=== PATIENT | male | born 1935 | race Caucasian/White ===

== ENCOUNTER 2016-12-20 11:33 | Emergency (ER) | payer OTHER ==
[~2016-12-20] VITALS: Ht 172.7 cm; Wt 65.8 kg
[~2016-12-20 11:33] MED LIST: ACID REDUCER 1150 MG PO; ADVAIR 250/501 DISK IH; ASPIR 8181 M1 PO; ASPIR-LOW81 MG PO; ASPIRIN81 M2 PO; ATHENOL325 MG PO; AZITHROMYCIN250 MG PO; AZITHROMYCIN500 M1 PO; CEFDINIR300 MG PO; CELECOXIB100 MG PO; CEPHALEXIN500 M1 PO; CEPHALEXIN500 MG PO; CHILD ASPIRIN81 M1 PO; CLEOCIN300 MG PO; COUMADIN,JANTOVE5 MG PO; COUMADIN3 MG PO; COUMADIN4 MG PO; COUMADIN5 MG PO; COUMADIN6 MG PO; ELIQUIS5 MG PO; ENDOCET 5-3251 EACH PO; FEOSOL325 MG PO; FEROSUL325 MG PO; FERROUS SULFAT325 MG PO; FUROSEMIDE40 MG PO; HYDROCODON-ACE1 EAC7 PO; IBUPROFEN400 MG PO; JANTOVEN4 MG PO; K-DUR20 MEQ PO; KEFLEX500 MG PO; KETOCONAZOLE TP; KETOCONAZOLE120 ML TP; KLOR-CON M2020 MEQ PO; KLOR-CON-EF 2525 MEQ PO; LASIX20 MG PO; LASIX40 MG PO; LISINOPRIL10 MG PO; LISINOPRIL5 MG PO; LOVENOX100 MG/1 M SC; LOVENOX40 MG/0.4 SC; METHYLPREDNISOLO4 M1 PO; METHYLPREDNISOLO4 MG PO; MOTRIN400 MG PO; MOTRIN600 MG PO; Maalox, Mylanta PO; Milk Of Magnesia,MOM PO; NEXIUM20 MG PO; NEXIUM40 MG PO; NIVEA192 GM TP; NORCO 7.5/321 TABLET PO; PERCOCET; PERCOCET 5/31 TABLET PO; POTASSIUM CHLO20 ME1 PO; PROVENTIL,2.5 MG/3 M IH; Protonix PO; RANITIDINE HCL150 M1 PO; SANTYL30 GM TP; SENOKOT S,PE1 TABLET PO; TAMIFLU30 MG PO; THERAGRAN1 TABLET PO; TRAMADOL HCL50 MG PO; TYLENOL COLD H1 EAC5 PO; ULTRAM50 MG PO; VICODIN,LORT1 TABLET PO; VITAMIN D31000 UNI2 PO; VITAMIN D31000 UNIT PO; WARFARIN SODIUM3 MG PO; WARFARIN SODIUM4 MG PO; WARFARIN SODIUM5 MG PO; ZITHROMAX Z-PA250 MG PO; [UNRECOGNIZED DRUG - REMARK]
[2016-12-20 13:39] VITALS: BP 135/82
== END 2016-12-20 13:51 | disposition home or self-care (01) ==
LOC: EME 11:33
DX: I87.8 Other specified disorders of veins (principal); I10 Essential (primary) hypertension; I73.9 Peripheral vascular disease, unspecified; Z91.81 History of falling; E11.9 Type 2 diabetes mellitus without complications; J45.909 Unspecified asthma, uncomplicated; Z86.718 Personal history of other venous thrombosis and embolism; Z79.01 Long term (current) use of anticoagulants; Z85.828 Personal history of other malignant neoplasm of skin
CPT/HCPCS: 73564; 99281; 99284

== ENCOUNTER 2017-01-09 20:51 | Emergency (ER) | payer OTHER ==
[2017-01-09 23:35] VITALS: BP 111/64
== END 2017-01-09 23:44 | disposition home or self-care (01) ==
LOC: EME 20:51 → EXP 20:51
DX: S80.12XA Contusion of left lower leg, initial encounter (principal); V00.832A Motorized mobility scooter colliding with stationary object, initial encounter; Z86.718 Personal history of other venous thrombosis and embolism; Z79.01 Long term (current) use of anticoagulants
CPT/HCPCS: 73590; 99281; 99283

== ENCOUNTER 2017-03-10 19:12 | Emergency (ER) | payer OTHER ==
[~2017-03-10] VITALS: Ht 172.7 cm; Wt 89.1 kg
[2017-03-10 20:49] LABS: HEMATOCRIT 27.9 % (38.0-50.0); MCH 31.5 PG (29.0-34.0); MCV 95.5 FL (86-99); PLATELET COUNT 127 K/uL (156-360); RBC DIS.WIDTH-CV 13.2 % (11.8-14.6); RBC DIS.WIDTH-SD 46.9 % (39-53); RED BLOOD COUNT 2.92 M/uL (4.00-5.50); WHITE BLOOD COUNT 5.7 K/uL (4.1-10.2)
[2017-03-10 21:01] LABS: CHLORIDE 105 mEq/L (99-109); POTASSIUM 4.7 mEq/L (3.7-5.4); SODIUM 139 mEq/L (136-147)
[2017-03-10 21:04] LABS: GLUCOSE 145 mg/dL (70-99)
[2017-03-10 21:05] LABS: ANION GAP 10 MEQ/L (2-14)
[2017-03-10 21:06] LABS: TOTAL BILIRUBIN 0.2 mg/dL (0.0-1.0)
[2017-03-10 21:07] LABS: ALKALINE PHOSPHATASE 82 IU/L (3-129); GFR ESTIMATE (CALCULATED) > 59 mL/min/
[2017-03-10 21:08] LABS: UREA NITROGEN (BUN) 32 mg/dL (9-23)
[2017-03-10 22:41] LABS: ADD MIUA? NO; BILIRUBIN NEGATIVE; BLOOD NEGATIVE; COLOR YELLOW ((YELLOW)); GLUCOSE (STRIP) NEGATIVE; KETONES NEGATIVE; LEUKOCYTES NEGATIVE; NITRITE NEGATIVE; PROTEIN (STRIP) NEGATIVE; SPECIFIC GRAVITY 1.025 (1.000-1.030); UCUL ADDED? NO; UROBILINOGEN 0.2 MG/DL (0.2-1.0)
[2017-03-11] MEDS ORDERED: KEFLEX500 MG PO (01:32)
[2017-03-11 02:06] VITALS: BP 148/62
== END 2017-03-11 02:07 | disposition home or self-care (01) ==
LOC: EME 19:12
DX: I87.8 Other specified disorders of veins (principal); I83.018 Varicose veins of right lower extremity with ulcer other part of lower leg; I83.028 Varicose veins of left lower extremity with ulcer other part of lower leg; L97.819 Non-pressure chronic ulcer of other part of right lower leg with unspecified severity; L97.829 Non-pressure chronic ulcer of other part of left lower leg with unspecified severity; S09.90XA Unspecified injury of head, initial encounter; W19.XXXA Unspecified fall, initial encounter; Z86.718 Personal history of other venous thrombosis and embolism; I10 Essential (primary) hypertension
CPT/HCPCS: 70450; 80053; 81003; 83605; 85027; 87040; 87070; 87075; 87077; 87186; 87205; 99281; 99285; J0696

== ENCOUNTER 2017-06-03 11:33 | Inpatient (IN) | payer OTHER ==
[~2017-06-03] VITALS: Ht 172.7 cm; Wt 98.9 kg
[2017-06-03 12:38] LABS: HEMATOCRIT 27.7 % (38.0-50.0); MCH 30.2 PG (29.0-34.0); MCHC 32.1 G/DL (30.0-36.0); MCV 93.9 FL (86-99); MEAN PLAT.VOLUME 11.4 uM^3 (9.0-12.4); PLATELET COUNT 106 K/uL (156-360); RBC DIS.WIDTH-CV 14.3 % (11.8-14.6); RBC DIS.WIDTH-SD 48.5 % (39-53); RED BLOOD COUNT 2.95 M/uL (4.00-5.50); WHITE BLOOD COUNT 9.5 K/uL (4.1-10.2)
[2017-06-03 12:47] LABS: CHLORIDE 102 mEq/L (99-109); POTASSIUM 4.1 mEq/L (3.7-5.4); SODIUM 136 mEq/L (136-147)
[2017-06-03 12:50] LABS: GLUCOSE 133 mg/dL (70-99)
[2017-06-03 12:51] LABS: ANION GAP 8 MEQ/L (2-14); TOTAL BILIRUBIN 0.4 mg/dL (0.0-1.0)
[2017-06-03 12:53] LABS: ALKALINE PHOSPHATASE 96 IU/L (3-129); GFR ESTIMATE (CALCULATED) > 59 mL/min/
[2017-06-03 12:54] LABS: UREA NITROGEN (BUN) 47 mg/dL (9-23)
[2017-06-03 12:59] LABS: TROP-I INTERPRETATION NEGATIVE; TROPONIN-I 0.03 ng/mL (0.0-0.30)
[2017-06-03 16:57] VITALS: BP 147/68
[2017-06-03 18:15] LABS: TROP-I INTERPRETATION NEGATIVE; TROPONIN-I 0.02 ng/mL (0.0-0.30)
[2017-06-03 20:00] VITALS: BP 120/70
[2017-06-03 21:45] LABS: POINT-OF-CARE METER ID UU13113700
[2017-06-04 00:04] VITALS: BP 91/54
[2017-06-04 00:44] LABS: TROP-I INTERPRETATION NEGATIVE; TROPONIN-I 0.03 ng/mL (0.0-0.30)
[2017-06-04 04:27] VITALS: BP 126/54
[2017-06-04 06:12] LABS: EOSINOPHIL (%) 4.2 % (0-5); EOSINOPHIL COUNT 0.3 K/uL (0-0.3); HEMATOCRIT 24.7 % (38.0-50.0); IMMATURE GRANULOCYTE (%) 0.6 % (0.0-0.7); INSTRUMENT ABS NEUTROPHIL CT 4.8 K/uL; LYMPHOCYTE COUNT 1.2 K/uL (1.0-2.8); MCH 30.8 PG (29.0-34.0); MCHC 32.8 G/DL (30.0-36.0); MCV 93.9 FL (86-99); MEAN PLAT.VOLUME 11.5 uM^3 (9.0-12.4); MONOCYTE (%) 7.8 % (3-12); MONOCYTE COUNT 0.5 K/uL (0-0.8); NEUTROPHIL COUNT 4.8 K/uL (1.8-6.4); PLATELET COUNT 99 K/uL (156-360); RBC DIS.WIDTH-CV 14.3 % (11.8-14.6); RBC DIS.WIDTH-SD 48.4 % (39-53); RED BLOOD COUNT 2.63 M/uL (4.00-5.50); WHITE BLOOD COUNT 6.8 K/uL (4.1-10.2)
[2017-06-04 06:28] LABS: TROP-I INTERPRETATION NEGATIVE; TROPONIN-I 0.03 ng/mL (0.0-0.30)
[2017-06-04 06:39] LABS: ANION GAP 7 MEQ/L (2-14); CHLORIDE 102 MEQ/L (99-109); GFR ESTIMATE (CALCULATED) > 59 mL/min/; GLUCOSE 137 mg/dL (70-99); POTASSIUM 3.9 MEQ/L (3.7-5.4); SAMPLE HEMOLYSIS CHECK 0; SAMPLE ICTERIC CHECK 0; SAMPLE LIPEMIA CHECK 0; SODIUM 138 MEQ/L (136-147); UREA NITROGEN (BUN) 45 mg/dL (9-23)
[2017-06-04 08:24] LABS: POINT-OF-CARE METER ID UU13113700
[2017-06-04 09:13] VITALS: BP 106/54
[2017-06-04 11:34] VITALS: BP 115/59
[2017-06-04 13:44] LABS: POINT-OF-CARE METER ID UU14162513
[2017-06-04] MEDS ORDERED: ADVAIR 250/501 DISK IH (15:41)
[2017-06-04] MEDS ORDERED: ALBUTEROL2.5 MG/3 M IH (15:41)
[2017-06-04] MEDS ORDERED: NEXIUM20 MG PO (15:42)
[2017-06-04] MEDS ORDERED: ULTRAM50 MG PO (15:42)
[2017-06-04] MEDS ORDERED: TYLENOL ARTHRI650 MG PO (15:43)
[2017-06-04] MEDS ORDERED: VOLTAREN 1% GE100 GM TP (15:44)
[2017-06-04 16:37] VITALS: BP 115/55
[2017-06-04 17:02] LABS: POINT-OF-CARE METER ID UU13113700
[2017-06-04 19:00] LABS: ADD MIUA? YES; BILIRUBIN NEGATIVE; BLOOD SMALL; COLOR STRAW ((YELLOW)); GLUCOSE (STRIP) NEGATIVE; KETONES NEGATIVE; LEUKOCYTES NEGATIVE; NITRITE NEGATIVE; PROTEIN (STRIP) NEGATIVE; SPECIFIC GRAVITY 1.013 (1.000-1.030); UROBILINOGEN 0.2 MG/DL (0.2-1.0)
[2017-06-04 19:02] LABS: BACTERIA NONE SEEN /HPF; EPITHELIAL CELLS NONE SEEN /HPF; MUCUS NONE SEEN /LPF; RED BLOOD CELLS 0-5 /HPF (0-5); UCUL ADDED? NO; WHITE BLOOD CELLS 0-5 /HPF (0-5)
[2017-06-04 22:03] LABS: POINT-OF-CARE METER ID UU13113700
[2017-06-05 02:28] VITALS: BP 130/60
[2017-06-05 04:51] VITALS: BP 136/70
[2017-06-05 04:51] LABS: EOSINOPHIL (%) 6.8 % (0-5); EOSINOPHIL COUNT 0.5 K/uL (0-0.3); HEMATOCRIT 26.7 % (38.0-50.0); IMMATURE GRANULOCYTE (%) 0.9 % (0.0-0.7); IMMATURE GRANULOCYTE COUNT 0.1 K/uL; INSTRUMENT ABS NEUTROPHIL CT 4.1 K/uL; LYMPHOCYTE COUNT 1.6 K/uL (1.0-2.8); MCH 29.9 PG (29.0-34.0); MCHC 32.2 G/DL (30.0-36.0); MCV 92.7 FL (86-99); MEAN PLAT.VOLUME 11.4 uM^3 (9.0-12.4); MONOCYTE (%) 7.9 % (3-12); MONOCYTE COUNT 0.5 K/uL (0-0.8); NEUTROPHIL (%) 60.3 % (45-76); NEUTROPHIL COUNT 4.1 K/uL (1.8-6.4); PLATELET COUNT 119 K/uL (156-360); RBC DIS.WIDTH-CV 13.8 % (11.8-14.6); RBC DIS.WIDTH-SD 47.1 % (39-53); RED BLOOD COUNT 2.88 M/uL (4.00-5.50); WHITE BLOOD COUNT 6.7 K/uL (4.1-10.2)
[2017-06-05 05:07] LABS: CHLORIDE 99 mEq/L (99-109); POTASSIUM 3.8 mEq/L (3.7-5.4); SODIUM 137 mEq/L (136-147)
[2017-06-05 05:09] LABS: GLUCOSE 119 mg/dL (70-99)
[2017-06-05 05:11] LABS: ANION GAP 7 MEQ/L (2-14)
[2017-06-05 05:13] LABS: ALKALINE PHOSPHATASE 92 IU/L (3-129); GFR ESTIMATE (CALCULATED) > 59 mL/min/ (58.99-99999)
[2017-06-05 05:14] LABS: UREA NITROGEN (BUN) 36 mg/dL (9-23)
[2017-06-05 05:16] LABS: TOTAL BILIRUBIN 0.5 mg/dL (0.0-1.0)
[2017-06-05 11:59] VITALS: BP 103/56
[2017-06-05 12:27] LABS: POINT-OF-CARE METER ID UU13113831
[2017-06-05 16:26] VITALS: BP 119/56
[2017-06-05 17:43] LABS: POINT-OF-CARE METER ID UU13113831
[2017-06-05 21:08] LABS: POINT-OF-CARE METER ID UU13113700
[2017-06-05 21:12] VITALS: BP 126/60
[2017-06-05 23:41] VITALS: BP 114/63
[2017-06-06 03:40] VITALS: BP 127/64
[2017-06-06 05:29] LABS: EOSINOPHIL (%) 4.6 % (0-5); EOSINOPHIL COUNT 0.3 K/uL (0-0.3); IMMATURE GRANULOCYTE (%) 0.5 % (0.0-0.7); INSTRUMENT ABS NEUTROPHIL CT 3.7 K/uL; LYMPHOCYTE COUNT 1.8 K/uL (1.0-2.8); MCH 30.3 PG (29.0-34.0); MCHC 32.8 G/DL (30.0-36.0); MCV 92.4 FL (86-99); MEAN PLAT.VOLUME 11.1 uM^3 (9.0-12.4); MONOCYTE (%) 7.6 % (3-12); MONOCYTE COUNT 0.5 K/uL (0-0.8); NEUTROPHIL (%) 59.1 % (45-76); NEUTROPHIL COUNT 3.7 K/uL (1.8-6.4); PLATELET COUNT 131 K/uL (156-360); RBC DIS.WIDTH-CV 13.8 % (11.8-14.6); RBC DIS.WIDTH-SD 46.8 % (39-53); RED BLOOD COUNT 3.14 M/uL (4.00-5.50); WHITE BLOOD COUNT 6.3 K/uL (4.1-10.2)
[2017-06-06 05:53] LABS: ANION GAP 8 MEQ/L (2-14); CHLORIDE 96 MEQ/L (99-109); GFR ESTIMATE (CALCULATED) > 59 mL/min/ (58.99-99999); GLUCOSE 128 mg/dL (70-99); POTASSIUM 3.7 MEQ/L (3.7-5.4); SAMPLE HEMOLYSIS CHECK 0; SAMPLE ICTERIC CHECK 0; SAMPLE LIPEMIA CHECK 0; SODIUM 137 MEQ/L (136-147); UREA NITROGEN (BUN) 34 mg/dL (9-23)
[2017-06-06 07:32] VITALS: BP 84/51
[2017-06-06 09:09] LABS: POINT-OF-CARE METER ID UU13113831
[2017-06-06 11:16] VITALS: BP 137/67
[2017-06-06 12:57] LABS: POINT-OF-CARE METER ID UU13113700
[2017-06-06 16:31] VITALS: BP 137/59
[2017-06-06 17:13] LABS: POINT-OF-CARE METER ID UU13113700
[2017-06-06 19:09] VITALS: BP 116/61
[2017-06-06 21:54] LABS: POINT-OF-CARE METER ID UU13113831
[2017-06-06 23:17] VITALS: BP 135/70
[2017-06-07 03:43] VITALS: BP 136/67
[2017-06-07 08:35] LABS: POINT-OF-CARE METER ID UU13113700
[2017-06-07 12:11] VITALS: BP 145/70
[2017-06-07 17:26] LABS: POINT-OF-CARE METER ID UU13113700
[2017-06-07 20:00] VITALS: BP 129/60
[2017-06-07 23:12] LABS: POINT-OF-CARE METER ID UU13113700
[2017-06-07 23:30] VITALS: BP 153/79
[2017-06-08 03:23] VITALS: BP 175/85
[2017-06-08 05:44] LABS: EOSINOPHIL (%) 5.8 % (0-5); EOSINOPHIL COUNT 0.4 K/uL (0-0.3); HEMATOCRIT 28.2 % (38.0-50.0); IMMATURE GRANULOCYTE (%) 1.6 % (0.0-0.7); IMMATURE GRANULOCYTE COUNT 0.1 K/uL; INSTRUMENT ABS NEUTROPHIL CT 3.8 K/uL; LYMPHOCYTE COUNT 1.5 K/uL (1.0-2.8); MCH 29.6 PG (29.0-34.0); MCHC 32.3 G/DL (30.0-36.0); MCV 91.9 FL (86-99); MEAN PLAT.VOLUME 10.7 uM^3 (9.0-12.4); MONOCYTE (%) 6.6 % (3-12); MONOCYTE COUNT 0.4 K/uL (0-0.8); NEUTROPHIL (%) 60.7 % (45-76); NEUTROPHIL COUNT 3.8 K/uL (1.8-6.4); PLATELET COUNT 154 K/uL (156-360); RBC DIS.WIDTH-CV 13.5 % (11.8-14.6); RBC DIS.WIDTH-SD 45.8 % (39-53); RED BLOOD COUNT 3.07 M/uL (4.00-5.50); WHITE BLOOD COUNT 6.2 K/uL (4.1-10.2)
[2017-06-08 06:13] LABS: ANION GAP 10 MEQ/L (2-14); CHLORIDE 101 MEQ/L (99-109); GFR ESTIMATE (CALCULATED) > 59 mL/min/ (58.99-99999); GLUCOSE 122 mg/dL (70-99); SAMPLE HEMOLYSIS CHECK 0; SAMPLE ICTERIC CHECK 0; SAMPLE LIPEMIA CHECK 0; SODIUM 136 MEQ/L (136-147); UREA NITROGEN (BUN) 27 mg/dL (9-23)
[2017-06-08 06:14] LABS: POTASSIUM 4.5 MEQ/L (3.7-5.4)
[2017-06-08 07:30] VITALS: BP 151/71
[2017-06-08 12:00] VITALS: BP 109/56
[2017-06-08 12:00] LABS: POINT-OF-CARE METER ID UU13113831
[2017-06-08 18:04] LABS: POINT-OF-CARE METER ID UU13113831
[2017-06-08] MEDS ORDERED: CIPROFLOXACIN500 M1 PO (19:24)
[2017-06-08] MEDS ORDERED: Milk Of Magnesia,MOM PO (19:25)
[2017-06-08 19:31] VITALS: BP 120/84
[2017-06-08] MEDS ORDERED: FUROSEMIDE40 MG PO (19:50)
[2017-06-08] MEDS ORDERED: ULTRAM50 MG PO (20:14)
== END 2017-06-08 21:15 | DRG 603 ==
LOC: EME 11:33 → EDOF 14:24 → 5WEST 14:24 → EDOF 14:24 → ENRESERV 14:27 → 5WEST 16:33 → ENRESERV 06-04 23:52 → CANRESERV 06-04 23:52 → 5WEST 06-05 07:22
PROVIDERS: Emergency Medicine; Family Medicine Sports Medicine; Hospitalist
DX: L03.115 Cellulitis of right lower limb (principal); R78.81 Bacteremia; L97.811 Non-pressure chronic ulcer of other part of right lower leg limited to breakdown of skin; L97.821 Non-pressure chronic ulcer of other part of left lower leg limited to breakdown of skin; L97.121 Non-pressure chronic ulcer of left thigh limited to breakdown of skin; E11.622 Type 2 diabetes mellitus with other skin ulcer; B96.20 Unspecified Escherichia coli [E. coli] as the cause of diseases classified elsewhere; L03.116 Cellulitis of left lower limb; I50.9 Heart failure, unspecified; I87.2 Venous insufficiency (chronic) (peripheral); I87.8 Other specified disorders of veins; I11.0 Hypertensive heart disease with heart failure; I27.20 Pulmonary hypertension, unspecified; I35.0 Nonrheumatic aortic (valve) stenosis; D64.9 Anemia, unspecified; M19.90 Unspecified osteoarthritis, unspecified site; Z87.820 Personal history of traumatic brain injury; Z86.711 Personal history of pulmonary embolism; Z86.718 Personal history of other venous thrombosis and embolism; Z85.828 Personal history of other malignant neoplasm of skin; Z79.01 Long term (current) use of anticoagulants; Z90.49 Acquired absence of other specified parts of digestive tract; Z79.51 Long term (current) use of inhaled steroids; E78.5 Hyperlipidemia, unspecified; Z82.49 Family history of ischemic heart disease and other diseases of the circulatory system; Z83.3 Family history of diabetes mellitus
CPT/HCPCS: 71020; 73020; 73030; 80048; 80053; 81003; 82948; 83880; 84484; 85025; 85027; 87040; 87070; 87075; 87077; 87147; 87186; 87205; 87801; 93005; 93306; 93970; 94640; 94640 76; 97530 GP; 99202; 99281; 99285; A6212; G0378; G8978 GP CM; G8979 GP CK; J1815; J1940; J2543; J3370; J7040; J7050

== ENCOUNTER 2017-07-17 15:41 | Emergency (ER) | payer OTHER ==
[~2017-07-17] VITALS: Ht 172.7 cm; Wt 86.0 kg
[~2017-07-17 15:41] MED LIST changes: +ALBUTEROL2.5 MG/3 M IH; +CIPROFLOXACIN500 M1 PO; +TYLENOL ARTHRI650 MG PO; +VOLTAREN 1% GE100 GM TP
[2017-07-17 17:03] LABS: HEMATOCRIT 26.8 % (38.0-50.0); HEMOGLOBIN 8.8 G/DL (12.5-16.6); MCHC 32.8 G/DL (30.0-36.0); MCV 91.5 FL (86-99); PLATELET COUNT 139 K/uL (156-360); RBC DIS.WIDTH-CV 14.4 % (11.8-14.6); RBC DIS.WIDTH-SD 48.4 % (39-53); RED BLOOD COUNT 2.93 M/uL (4.00-5.50); WHITE BLOOD COUNT 5.9 K/uL (4.1-10.2)
[2017-07-17 17:11] LABS: INTER. NORMALIZED RATIO 1.5
[2017-07-17] MEDS ORDERED: LASIX20 MG PO (19:32)
[2017-07-17] MEDS ORDERED: CEPHALEXIN500 MG PO (19:32)
[2017-07-17 21:54] VITALS: BP 98/52
== END 2017-07-17 21:55 | disposition home or self-care (01) ==
LOC: EME 15:41
PROVIDERS: Emergency Medicine
DX: S81.812A Laceration without foreign body, left lower leg, initial encounter (principal); S09.90XA Unspecified injury of head, initial encounter; R60.0 Localized edema; W18.30XA Fall on same level, unspecified, initial encounter; Z23 Encounter for immunization; Z79.01 Long term (current) use of anticoagulants; D64.9 Anemia, unspecified; Z86.718 Personal history of other venous thrombosis and embolism; I10 Essential (primary) hypertension; J45.909 Unspecified asthma, uncomplicated; Z85.828 Personal history of other malignant neoplasm of skin; Z87.820 Personal history of traumatic brain injury
CPT/HCPCS: 70450; 85027; 85610; 99281; 99285

== ENCOUNTER 2017-08-21 22:42 | Emergency (ER) | payer OTHER ==
[~2017-08-21] VITALS: Ht 170.2 cm; Wt 85.4 kg
[2017-08-21 23:43] LABS: HEMATOCRIT 25.1 % (38.0-50.0); HEMOGLOBIN 8.1 G/DL (12.5-16.6); MCH 30.1 PG (29.0-34.0); MCHC 32.3 G/DL (30.0-36.0); MCV 93.3 FL (86-99); PLATELET COUNT 130 K/uL (156-360); RBC DIS.WIDTH-CV 15.3 % (11.8-14.6); RBC DIS.WIDTH-SD 51.8 % (39-53); RED BLOOD COUNT 2.69 M/uL (4.00-5.50); WHITE BLOOD COUNT 4.3 K/uL (4.1-10.2)
[2017-08-22 00:02] LABS: CHLORIDE 101 mEq/L (99-109); SODIUM 136 mEq/L (136-147)
[2017-08-22 00:03] LABS: GLUCOSE 146 mg/dL (70-99)
[2017-08-22 00:07] LABS: GFR ESTIMATE (CALCULATED) > 59 mL/min/ (58.99-99999)
[2017-08-22 00:08] LABS: UREA NITROGEN (BUN) 26 mg/dL (9-23)
[2017-08-22 03:53] VITALS: BP 107/59
== END 2017-08-22 03:57 | disposition home or self-care (01) ==
LOC: EME → EDBD 22:42 → EME 22:42
PROVIDERS: Physician Assistant
DX: L89.152 Pressure ulcer of sacral region, stage 2 (principal); R60.0 Localized edema; I87.2 Venous insufficiency (chronic) (peripheral); I10 Essential (primary) hypertension; J45.909 Unspecified asthma, uncomplicated; Z79.01 Long term (current) use of anticoagulants; Z86.718 Personal history of other venous thrombosis and embolism; Z85.828 Personal history of other malignant neoplasm of skin
CPT/HCPCS: 80048; 85027; 99281; 99284; A6214

== ENCOUNTER 2017-09-01 23:06 | Inpatient (IN) | payer OTHER ==
[~2017-09-01] VITALS: Ht 167.6 cm; Wt 83.9 kg
[2017-09-01 23:49] LABS: HEMATOCRIT 24.8 % (38.0-50.0); MCH 30.8 PG (29.0-34.0); MCHC 32.3 G/DL (30.0-36.0); MCV 95.4 FL (86-99); PLATELET COUNT 168 K/uL (156-360); RBC DIS.WIDTH-CV 16.3 % (11.8-14.6); RBC DIS.WIDTH-SD 57.1 % (39-53); WHITE BLOOD COUNT 7.1 K/uL (4.1-10.2)
[2017-09-02 00:11] LABS: TROP-I INTERPRETATION NEGATIVE; TROPONIN-I 0.03 ng/mL (0.0-0.30)
[2017-09-02 00:13] LABS: ALBUMIN 3.2 g/dL (3.2-4.8)
[2017-09-02 00:14] LABS: CHLORIDE 102 mEq/L (99-109); POTASSIUM 4.3 mEq/L (3.7-5.4); SODIUM 137 mEq/L (136-147)
[2017-09-02 00:16] LABS: GLUCOSE 111 mg/dL (70-99); TOTAL PROTEIN 7.3 g/dL (6.4-8.3)
[2017-09-02 00:18] LABS: TOTAL BILIRUBIN 1.8 mg/dL (0.0-1.0)
[2017-09-02 00:19] LABS: ALKALINE PHOSPHATASE 779 IU/L (3-129)
[2017-09-02 00:20] LABS: CREATININE 0.9 mg/dL (0.6-1.3); GFR ESTIMATE (CALCULATED) > 59 mL/min/ (58.99-99999)
[2017-09-02 00:21] LABS: AST (GOT) 153 IU/L (2-34); UREA NITROGEN (BUN) 29 mg/dL (9-23)
[2017-09-02 00:23] LABS: ALT (GPT) 211 IU/L (3-49)
[2017-09-02 01:36] LABS: CREATINE KINASE 68 IU/L (1-294)
[2017-09-02 03:20] VITALS: BP 114/55
[2017-09-02 06:11] LABS: HEMOGLOBIN 7.2 G/DL (12.5-16.6); MCH 29.8 PG (29.0-34.0); MCHC 31.3 G/DL (30.0-36.0); PLATELET COUNT 151 K/uL (156-360); RBC DIS.WIDTH-CV 16.1 % (11.8-14.6); RED BLOOD COUNT 2.42 M/uL (4.00-5.50); WHITE BLOOD COUNT 6.9 K/uL (4.1-10.2)
[2017-09-02 06:35] LABS: TROP-I INTERPRETATION NEGATIVE; TROPONIN-I 0.04 ng/mL (0.0-0.30)
[2017-09-02 06:36] LABS: CHLORIDE 105 MEQ/L (99-109); CREATININE 0.7 MG/DL (0.6-1.3); GFR ESTIMATE (CALCULATED) > 59 mL/min/ (58.99-99999); GLUCOSE 121 mg/dL (70-99); SODIUM 136 MEQ/L (136-147); UREA NITROGEN (BUN) 24 mg/dL (9-23)
[2017-09-02 07:01] VITALS: BP 114/56
[2017-09-02 07:27] LABS: HDL CHOLESTEROL 36 MG/DL (Desirable>=40); LDL CHOLESTEROL 83 mg/dL (Desirable<100); NON-HDL CHOLESTEROL 98 mg/dL (Desirable<160); TOTAL CHOLESTEROL 134 mg/dL (Desirable<200); TRIGLYCERIDES 76 MG/DL (Normal: <150)
[2017-09-02 11:01] VITALS: BP 141/74
[2017-09-02] MEDS ORDERED: PROVENTIL,2.5 MG/3 M IH (11:14)
[2017-09-02] MEDS ORDERED: ADVAIR 250/501 DISK IH (11:15)
[2017-09-02] MEDS ORDERED: TRAMADOL HCL50 MG PO ×2 (11:15)
[2017-09-02] MEDS ORDERED: FEOSOL325 MG PO (11:15)
[2017-09-02] MEDS ORDERED: VOLTAREN 1% GE100 GM TP (11:16)
[2017-09-02] MEDS ORDERED: VITAMIN D31000 UNIT PO (11:16)
[2017-09-02] MEDS ORDERED: PRINIVIL10 MG PO (11:16)
[2017-09-02] MEDS ORDERED: NEXIUM20 MG PO (11:16)
[2017-09-02] MEDS ORDERED: TYLENOL ARTHRI650 MG PO (11:17)
[2017-09-02] MEDS ORDERED: ELIQUIS5 MG PO (11:17)
[2017-09-02] MEDS ORDERED: LOTRIMIN AF24 GM TP (11:17)
[2017-09-02] MEDS ORDERED: LASIX40 MG PO (11:17)
[2017-09-02] MEDS ORDERED: KETOCONAZOLE120 ML TP (11:18)
[2017-09-02] MEDS ORDERED: K-DUR20 MEQ PO (11:18)
[2017-09-02 12:31] LABS: IRON 30 MCG/DL (35-150); TRANSFERRIN (TIBC) 229.7 mg/dL (215-380); TRANSFERRIN SATUR. 13 % (20-55)
[2017-09-02 15:08] VITALS: BP 136/67
[2017-09-02 20:00] VITALS: BP 133/64
[2017-09-03] VITALS (7 sets, daily range): BP systolic 118–148; BP diastolic 56–70
[2017-09-03 06:58] LABS: BASOPHIL (%) 0.5 % (0-1); EOSINOPHIL (%) 5.4 % (0-5); EOSINOPHIL COUNT 0.3 K/uL (0-0.3); HEMATOCRIT 24.6 % (38.0-50.0); HEMOGLOBIN 7.8 G/DL (12.5-16.6); IMMATURE GRANULOCYTE (%) 0.3 % (0.0-0.7); LYMPHOCYTE (%) 24.9 % (15-42); LYMPHOCYTE COUNT 1.5 K/uL (1.0-2.8); MCH 29.9 PG (29.0-34.0); MCHC 31.7 G/DL (30.0-36.0); MCV 94.3 FL (86-99); MONOCYTE (%) 9.6 % (3-12); MONOCYTE COUNT 0.6 K/uL (0-0.8); NEUTROPHIL (%) 59.3 % (45-76); NEUTROPHIL COUNT 3.6 K/uL (1.8-6.4); PLATELET COUNT 172 K/uL (156-360); RBC DIS.WIDTH-CV 16.1 % (11.8-14.6); RED BLOOD COUNT 2.61 M/uL (4.00-5.50); WHITE BLOOD COUNT 6.1 K/uL (4.1-10.2)
[2017-09-03 07:30] LABS: ALBUMIN 2.6 G/DL (3.2-4.8); ALKALINE PHOSPHATASE 666 IU/L (3-129); ALT (GPT) 146 IU/L (3-49); AST (GOT) 143 IU/L (2-34); CHLORIDE 101 MEQ/L (99-109); CREATININE 0.7 MG/DL (0.6-1.3); GFR ESTIMATE (CALCULATED) > 59 mL/min/ (58.99-99999); GLUCOSE 119 mg/dL (70-99); POTASSIUM 4.4 MEQ/L (3.7-5.4); SODIUM 133 MEQ/L (136-147); TOTAL BILIRUBIN 2.6 MG/DL (0.0-1.0); TOTAL PROTEIN 6.3 G/DL (6.4-8.3); UREA NITROGEN (BUN) 17 mg/dL (9-23)
[2017-09-03 07:58] LABS: CHLORIDE 101 MEQ/L (99-109); CREATININE 0.8 MG/DL (0.6-1.3); GFR ESTIMATE (CALCULATED) > 59 mL/min/ (58.99-99999); GLUCOSE 117 mg/dL (70-99); POTASSIUM 4.4 MEQ/L (3.7-5.4); SERUM ETHYL ALCOHOL < 10 mg/dL; SODIUM 134 MEQ/L (136-147); UREA NITROGEN (BUN) 17 mg/dL (9-23)
[2017-09-03 08:14] LABS: FOLIC ACID (FOLATE) > 22.0 NG/ML (5.0-22.0)
[2017-09-03 09:27] LABS: STOOL OCCULT BLD 1ST SPECIMEN POSITIVE
[2017-09-03 23:14] LABS: APPEARANCE CLEAR ((CLEAR)); BILIRUBIN SMALL; BLOOD NEGATIVE; COLOR AMBER ((YELLOW)); GLUCOSE (STRIP) 50; KETONES NEGATIVE; LEUKOCYTES NEGATIVE; NITRITE NEGATIVE; PROTEIN (STRIP) NEGATIVE; SPECIFIC GRAVITY 1.016 (1.000-1.030); UCUL ADDED? NO
[2017-09-04 03:41] VITALS: BP 131/64
[2017-09-04 06:51] LABS: BASOPHIL (%) 0.4 % (0-1); EOSINOPHIL COUNT 0.3 K/uL (0-0.3); HEMATOCRIT 24.3 % (38.0-50.0); HEMOGLOBIN 7.8 G/DL (12.5-16.6); IMMATURE GRANULOCYTE (%) 0.8 % (0.0-0.7); LYMPHOCYTE (%) 27.7 % (15-42); LYMPHOCYTE COUNT 1.4 K/uL (1.0-2.8); MCH 29.9 PG (29.0-34.0); MCHC 32.1 G/DL (30.0-36.0); MCV 93.1 FL (86-99); MONOCYTE (%) 11.2 % (3-12); MONOCYTE COUNT 0.6 K/uL (0-0.8); NEUTROPHIL (%) 53.9 % (45-76); NEUTROPHIL COUNT 2.8 K/uL (1.8-6.4); PLATELET COUNT 169 K/uL (156-360); RBC DIS.WIDTH-CV 15.9 % (11.8-14.6); RBC DIS.WIDTH-SD 54.4 % (39-53); RED BLOOD COUNT 2.61 M/uL (4.00-5.50); WHITE BLOOD COUNT 5.2 K/uL (4.1-10.2)
[2017-09-04 07:14] LABS: ALBUMIN 2.4 G/DL (3.2-4.8); ALKALINE PHOSPHATASE 598 IU/L (3-129); ALT (GPT) 157 IU/L (3-49); AST (GOT) 163 IU/L (2-34); CHLORIDE 100 MEQ/L (99-109); CREATININE 0.8 MG/DL (0.6-1.3); GFR ESTIMATE (CALCULATED) > 59 mL/min/ (58.99-99999); GLUCOSE 114 mg/dL (70-99); POTASSIUM 4.7 MEQ/L (3.7-5.4); SODIUM 136 MEQ/L (136-147); TOTAL BILIRUBIN 2.9 MG/DL (0.0-1.0); TOTAL PROTEIN 5.8 G/DL (6.4-8.3); UREA NITROGEN (BUN) 14 mg/dL (9-23)
[2017-09-04 08:23] VITALS: BP 138/66
[2017-09-04 11:24] LABS: HEPATITIS B SURFACE ANTIGEN Nonreactive
[2017-09-04 11:25] LABS: HEPATITIS C ANTIBODY Nonreactive
[2017-09-04 11:26] LABS: ANTI-HEPATITIS A VIRUS (IGM) Nonreactive; ANTI-HEPATITIS B CORE (IGM) Nonreactive
[2017-09-04 16:00] VITALS: BP 158/72
[2017-09-04 23:34] VITALS: BP 151/67
[2017-09-05 06:06] LABS: BASOPHIL (%) 0.5 % (0-1); EOSINOPHIL (%) 5.5 % (0-5); EOSINOPHIL COUNT 0.3 K/uL (0-0.3); HEMATOCRIT 25.8 % (38.0-50.0); HEMOGLOBIN 8.2 G/DL (12.5-16.6); IMMATURE GRANULOCYTE (%) 0.5 % (0.0-0.7); LYMPHOCYTE (%) 19.6 % (15-42); LYMPHOCYTE COUNT 1.2 K/uL (1.0-2.8); MCH 29.5 PG (29.0-34.0); MCHC 31.8 G/DL (30.0-36.0); MCV 92.8 FL (86-99); MONOCYTE (%) 11.1 % (3-12); MONOCYTE COUNT 0.7 K/uL (0-0.8); NEUTROPHIL (%) 62.8 % (45-76); NEUTROPHIL COUNT 3.8 K/uL (1.8-6.4); PLATELET COUNT 189 K/uL (156-360); RBC DIS.WIDTH-CV 15.7 % (11.8-14.6); RBC DIS.WIDTH-SD 53.9 % (39-53); RED BLOOD COUNT 2.78 M/uL (4.00-5.50)
[2017-09-05 06:30] LABS: CHLORIDE 99 MEQ/L (99-109); CREATININE 0.7 MG/DL (0.6-1.3); GFR ESTIMATE (CALCULATED) > 59 mL/min/ (58.99-99999); GLUCOSE 124 mg/dL (70-99); POTASSIUM 4.3 MEQ/L (3.7-5.4); SODIUM 131 MEQ/L (136-147); UREA NITROGEN (BUN) 16 mg/dL (9-23)
[2017-09-05 08:00] VITALS: BP 157/69
[2017-09-05 16:00] VITALS: BP 148/63
[2017-09-05 20:33] VITALS: BP 148/64
[2017-09-05 23:50] VITALS: BP 110/71
[2017-09-06 06:57] LABS: BASOPHIL (%) 0.5 % (0-1); EOSINOPHIL (%) 6.3 % (0-5); EOSINOPHIL COUNT 0.4 K/uL (0-0.3); HEMATOCRIT 26.3 % (38.0-50.0); HEMOGLOBIN 8.6 G/DL (12.5-16.6); IMMATURE GRANULOCYTE (%) 0.5 % (0.0-0.7); MCH 30.4 PG (29.0-34.0); MCHC 32.7 G/DL (30.0-36.0); MCV 92.9 FL (86-99); MONOCYTE (%) 11.2 % (3-12); MONOCYTE COUNT 0.6 K/uL (0-0.8); NEUTROPHIL (%) 63.5 % (45-76); NEUTROPHIL COUNT 3.5 K/uL (1.8-6.4); PLATELET COUNT 164 K/uL (156-360); RBC DIS.WIDTH-CV 15.9 % (11.8-14.6); RBC DIS.WIDTH-SD 54.3 % (39-53); RED BLOOD COUNT 2.83 M/uL (4.00-5.50); WHITE BLOOD COUNT 5.6 K/uL (4.1-10.2)
[2017-09-06 07:27] LABS: CHLORIDE 99 MEQ/L (99-109); CREATININE 0.7 MG/DL (0.6-1.3); GFR ESTIMATE (CALCULATED) > 59 mL/min/ (58.99-99999); GLUCOSE 120 mg/dL (70-99); POTASSIUM 4.6 MEQ/L (3.7-5.4); SODIUM 133 MEQ/L (136-147); UREA NITROGEN (BUN) 19 mg/dL (9-23)
[2017-09-06 07:41] VITALS: BP 153/69
[2017-09-06 14:48] VITALS: BP 107/55
[2017-09-06 23:46] VITALS: BP 152/67
[2017-09-07 06:11] LABS: BASOPHIL (%) 0.5 % (0-1); EOSINOPHIL (%) 5.7 % (0-5); EOSINOPHIL COUNT 0.3 K/uL (0-0.3); HEMATOCRIT 26.5 % (38.0-50.0); HEMOGLOBIN 8.3 G/DL (12.5-16.6); IMMATURE GRANULOCYTE (%) 0.7 % (0.0-0.7); LYMPHOCYTE (%) 20.1 % (15-42); LYMPHOCYTE COUNT 1.2 K/uL (1.0-2.8); MCH 29.3 PG (29.0-34.0); MCHC 31.3 G/DL (30.0-36.0); MCV 93.6 FL (86-99); MONOCYTE (%) 10.4 % (3-12); MONOCYTE COUNT 0.6 K/uL (0-0.8); NEUTROPHIL (%) 62.6 % (45-76); NEUTROPHIL COUNT 3.6 K/uL (1.8-6.4); PLATELET COUNT 184 K/uL (156-360); RBC DIS.WIDTH-CV 16.3 % (11.8-14.6); RBC DIS.WIDTH-SD 55.6 % (39-53); RED BLOOD COUNT 2.83 M/uL (4.00-5.50); WHITE BLOOD COUNT 5.8 K/uL (4.1-10.2)
[2017-09-07 06:34] LABS: ALBUMIN 2.5 G/DL (3.2-4.8); ALKALINE PHOSPHATASE 657 IU/L (3-129); ALT (GPT) 131 IU/L (3-49); AST (GOT) 127 IU/L (2-34); CHLORIDE 98 MEQ/L (99-109); CREATININE 0.7 MG/DL (0.6-1.3); GFR ESTIMATE (CALCULATED) > 59 mL/min/ (58.99-99999); GLUCOSE 171 mg/dL (70-99); POTASSIUM 4.2 MEQ/L (3.7-5.4); SODIUM 131 MEQ/L (136-147); TOTAL PROTEIN 6.1 G/DL (6.4-8.3); UREA NITROGEN (BUN) 21 mg/dL (9-23)
[2017-09-07 07:00] VITALS: BP 132/58
[2017-09-07] MEDS ORDERED: ATORVASTATIN CA40 MG PO (20:57)
[2017-09-07] MEDS ORDERED: LOPRESSOR25 MG PO (20:57)
[2017-09-07] MEDS ORDERED: LASIX40 MG PO (20:58)
[2017-09-07] MEDS ORDERED: NEXIUM20 MG PO (20:59)
[2017-09-07] MEDS ORDERED: Chronulac,Cephulac,E PO (21:03)
[2017-09-08] VITALS: BP 144/63
[2017-09-08 06:19] LABS: HEMATOCRIT 26.6 % (38.0-50.0); HEMOGLOBIN 8.5 G/DL (12.5-16.6); MCH 30.2 PG (29.0-34.0); MCV 94.7 FL (86-99); PLATELET COUNT 148 K/uL (156-360); RBC DIS.WIDTH-CV 16.2 % (11.8-14.6); RBC DIS.WIDTH-SD 56.6 % (39-53); RED BLOOD COUNT 2.81 M/uL (4.00-5.50); WHITE BLOOD COUNT 7.8 K/uL (4.1-10.2)
[2017-09-08 06:48] LABS: ALBUMIN 2.5 G/DL (3.2-4.8); ALKALINE PHOSPHATASE 622 IU/L (3-129); ALT (GPT) 122 IU/L (3-49); AST (GOT) 107 IU/L (2-34); CHLORIDE 101 MEQ/L (99-109); CREATININE 0.7 MG/DL (0.6-1.3); GFR ESTIMATE (CALCULATED) > 59 mL/min/ (58.99-99999); GLUCOSE 131 mg/dL (70-99); POTASSIUM 4.6 MEQ/L (3.7-5.4); SODIUM 135 MEQ/L (136-147); TOTAL PROTEIN 6.4 G/DL (6.4-8.3); UREA NITROGEN (BUN) 16 mg/dL (9-23)
[2017-09-08 06:52] LABS: TOTAL BILIRUBIN 1.6 MG/DL (0.0-1.0)
[2017-09-08 07:59] VITALS: BP 161/73
== END 2017-09-08 18:04 | DRG 65 ==
LOC: EME 23:06 → 5SOUTH 09-02 01:09 → EDOF 09-02 01:09 → ENRESERV 09-02 01:11 → 5SOUTH 09-02 02:44
PROVIDERS: Emergency Medicine; Family Medicine Sports Medicine; Radiology Diagnostic Radiology
PROC: 0F798DZ Dilation of Common Bile Duct with Intraluminal Device, Via Natural or Artificial Opening Endoscopic (ICD-10-PCS; principal; 2017-09-07)
DX: I63.9 Cerebral infarction, unspecified (principal); K80.51 Calculus of bile duct without cholangitis or cholecystitis with obstruction; L03.90 Cellulitis, unspecified; D50.9 Iron deficiency anemia, unspecified; I50.9 Heart failure, unspecified; I11.0 Hypertensive heart disease with heart failure; K80.61 Calculus of gallbladder and bile duct with cholecystitis, unspecified, with obstruction; L89.322 Pressure ulcer of left buttock, stage 2; L89.312 Pressure ulcer of right buttock, stage 2; L30.9 Dermatitis, unspecified; E11.51 Type 2 diabetes mellitus with diabetic peripheral angiopathy without gangrene; E11.42 Type 2 diabetes mellitus with diabetic polyneuropathy; J45.909 Unspecified asthma, uncomplicated; C44.90 Unspecified malignant neoplasm of skin, unspecified; Z68.29 Body mass index [BMI] 29.0-29.9, adult; F32.9 Major depressive disorder, single episode, unspecified; I87.2 Venous insufficiency (chronic) (peripheral); L97.919 Non-pressure chronic ulcer of unspecified part of right lower leg with unspecified severity; L97.929 Non-pressure chronic ulcer of unspecified part of left lower leg with unspecified severity; E11.622 Type 2 diabetes mellitus with other skin ulcer; M19.90 Unspecified osteoarthritis, unspecified site; K21.9 Gastro-esophageal reflux disease without esophagitis; E78.5 Hyperlipidemia, unspecified; R29.810 Facial weakness; R26.9 Unspecified abnormalities of gait and mobility; K27.9 Peptic ulcer, site unspecified, unspecified as acute or chronic, without hemorrhage or perforation; K86.9 Disease of pancreas, unspecified; R29.6 Repeated falls; I87.8 Other specified disorders of veins; W19.XXXA Unspecified fall, initial encounter; Z79.01 Long term (current) use of anticoagulants; Z79.899 Other long term (current) drug therapy; Z86.73 Personal history of transient ischemic attack (TIA), and cerebral infarction without residual deficits; Z86.718 Personal history of other venous thrombosis and embolism; Z85.828 Personal history of other malignant neoplasm of skin; Z82.49 Family history of ischemic heart disease and other diseases of the circulatory system
CPT/HCPCS: 70450; 70551; 71045; 73564; 74181; 74330; 76705; 80048; 80053; 80061; 80074; 81003; 82140; 82272; 82550; 82607; 82746; 82948; 83036; 83540; 84466; 84484; 85025; 85027; 87040; 87081; 88108; 88305; 92610 GN; 93005; 93306; 93880; 97530 GO; 97530 GP; 99281; 99285; A6260; C1726; C1755; C1757; C1769; C2625; G0480; J0690; J1650; J2405; J3010; J7040

== ENCOUNTER 2017-09-19 05:19 | Inpatient (IN) | payer OTHER ==
[~2017-09-19] VITALS: Ht 172.7 cm; Wt 64.5 kg
[~2017-09-19 05:19] MED LIST changes: +ATORVASTATIN CA40 MG PO; +Chronulac,Cephulac,E PO; +LOPRESSOR25 MG PO; +LOTRIMIN AF24 GM TP; +PRINIVIL10 MG PO; +TYLENOL REGULA325 MG PO
[2017-09-19 05:54] LABS: APPEARANCE CLEAR ((CLEAR)); COLOR YELLOW ((YELLOW))
[2017-09-19 05:55] LABS: LEUKOCYTES NEGATIVE; NITRITE NEGATIVE
[2017-09-19 05:56] LABS: BILIRUBIN NEGATIVE; BLOOD NEGATIVE; GLUCOSE (STRIP) NEGATIVE; KETONES NEGATIVE; PROTEIN (STRIP) NEGATIVE; UCUL ADDED? NO
[2017-09-19 06:25] LABS: HEMATOCRIT 28.4 % (38.0-50.0); HEMOGLOBIN 9.4 G/DL (12.5-16.6); MCH 30.2 PG (29.0-34.0); MCHC 33.1 G/DL (30.0-36.0); MCV 91.3 FL (86-99); PLATELET COUNT 131 K/uL (156-360); RBC DIS.WIDTH-CV 14.2 % (11.8-14.6); RBC DIS.WIDTH-SD 47.5 % (39-53); RED BLOOD COUNT 3.11 M/uL (4.00-5.50)
[2017-09-19 06:34] LABS: INTER. NORMALIZED RATIO 1.2
[2017-09-19 06:37] LABS: ALBUMIN 3.1 g/dL (3.2-4.8)
[2017-09-19 06:37] LABS: PTT 25.7 SEC (25-37)
[2017-09-19 06:38] LABS: CHLORIDE 101 mEq/L (99-109); POTASSIUM 4.1 mEq/L (3.7-5.4); SODIUM 134 mEq/L (136-147)
[2017-09-19 06:40] LABS: GLUCOSE 146 mg/dL (70-99); TOTAL PROTEIN 8.2 g/dL (6.4-8.3)
[2017-09-19 06:42] LABS: BASE EXCESS 2.7 mEq/L (-3 to +3); BICARBONATE 25.3 mEq/L (22-26); CARBOXY HGB 1.7 % (0-5); COMMENTS - BLOOD GASES C+A+; DEVICE ROOM AIR; METHEMOGLOBIN 0.9 % (0-1.5); PCO2 31 mm Hg (35-45); PO2 74 mm Hg (80-100); SITE RR; TOTAL RESP RATE 18 resp/min; pH 7.52 (7.35-7.45)
[2017-09-19 06:42] LABS: TOTAL BILIRUBIN 0.8 mg/dL (0.0-1.0)
[2017-09-19 06:43] LABS: ALKALINE PHOSPHATASE 276 IU/L (3-129)
[2017-09-19 06:44] LABS: CREATININE 0.8 mg/dL (0.6-1.3); GFR ESTIMATE (CALCULATED) > 59 mL/min/ (58.99-99999)
[2017-09-19 06:45] LABS: AST (GOT) 54 IU/L (2-34); UREA NITROGEN (BUN) 23 mg/dL (9-23)
[2017-09-19 06:46] LABS: ALT (GPT) 54 IU/L (3-49)
[2017-09-19 06:47] LABS: LIPASE 49 U/L (1.0-51.0)
[2017-09-19 06:53] LABS: TROP-I INTERPRETATION NEGATIVE; TROPONIN-I 0.05 ng/mL (0.0-0.30)
[2017-09-19] MEDS ORDERED: LOPRESSOR50 MG PO (08:24)
[2017-09-19] MEDS ORDERED: OMEPRAZOLE20 MG PO (08:24)
[2017-09-19] MEDS ORDERED: SODIUM CHLORIDE1 G1 PO (08:25)
[2017-09-19] MEDS ORDERED: DULCOLAX10 MG PR (10:31)
[2017-09-19] MEDS ORDERED: FLEET MINERAL133 ML PR (10:33)
[2017-09-19] MEDS ORDERED: MILK OF MAGN PO (10:34)
[2017-09-19] MEDS ORDERED: SILVADENE20 GM TP (10:37)
[2017-09-19 10:47] VITALS: BP 171/74
[2017-09-19 11:49] VITALS: BP 125/67
[2017-09-19 12:04] LABS: HDL CHOLESTEROL 24 MG/DL (Desirable>=40); LDL CHOLESTEROL 77 mg/dL (Desirable<100); NON-HDL CHOLESTEROL 102 mg/dL (Desirable<160); TOTAL CHOLESTEROL 126 mg/dL (Desirable<200); TRIGLYCERIDES 126 MG/DL (Normal: <150)
[2017-09-19 19:57] VITALS: BP 134/63
[2017-09-20] MEDS ORDERED: ATROPINE 1100 DROP/5 SL (13:12)
[2017-09-20] MEDS ORDERED: morphine Sulfate IV (13:13)
== END 2017-09-20 19:23 | disposition hospice, home (50) | DRG 64 ==
LOC: EME → EDBD 05:19 → EME 05:19 → EDOF 08:15 → ENRESERV 08:17 → EDOF 08:59 → ENRESERV 09:42 → 5SOUTH 10:21
PROVIDERS: Emergency Medicine; Family Medicine Sports Medicine
DX: I63.512 Cerebral infarction due to unspecified occlusion or stenosis of left middle cerebral artery (principal); I61.9 Nontraumatic intracerebral hemorrhage, unspecified; E72.20 Disorder of urea cycle metabolism, unspecified; F05 Delirium due to known physiological condition; L97.909 Non-pressure chronic ulcer of unspecified part of unspecified lower leg with unspecified severity; E87.3 Alkalosis; D50.9 Iron deficiency anemia, unspecified; E11.40 Type 2 diabetes mellitus with diabetic neuropathy, unspecified; Z66 Do not resuscitate; Z51.5 Encounter for palliative care; I87.2 Venous insufficiency (chronic) (peripheral); K21.9 Gastro-esophageal reflux disease without esophagitis; J45.909 Unspecified asthma, uncomplicated; I70.0 Atherosclerosis of aorta; Q23.8 Other congenital malformations of aortic and mitral valves; I11.0 Hypertensive heart disease with heart failure; I50.9 Heart failure, unspecified; G83.9 Paralytic syndrome, unspecified; I67.1 Cerebral aneurysm, nonruptured; R47.01 Aphasia; M19.90 Unspecified osteoarthritis, unspecified site; I87.8 Other specified disorders of veins; I83.009 Varicose veins of unspecified lower extremity with ulcer of unspecified site; Z79.51 Long term (current) use of inhaled steroids; Z79.01 Long term (current) use of anticoagulants; Z87.440 Personal history of urinary (tract) infections; Z87.820 Personal history of traumatic brain injury; Z86.718 Personal history of other venous thrombosis and embolism; Z82.49 Family history of ischemic heart disease and other diseases of the circulatory system; Z82.61 Family history of arthritis
CPT/HCPCS: 36600; 70450; 70553; 71045; 80048; 80053; 80061; 81003; 82140; 82803; 82948; 83036; 83605; 83690; 84484; 85025; 85027; 85610; 85730; 87040; 93005; 94640; 94640 76; 94760; 94799; 99202; 99281; 99285; J7120; S0028